=== PATIENT | male | born 2000 | race Caucasian/White ===

== ENCOUNTER 2020-03-12 20:15 | Emergency (ER) | payer OTHER ==
[~2020-03-12] VITALS: Ht 165.1 cm; Wt 175.0 kg
[2020-03-12] MEDS ORDERED: INSLAN SQ (20:24)
[2020-03-12] MEDS ORDERED: INSNOV SQ (20:24)
[2020-03-12] MEDS ORDERED: ALBUTEROL SULFATE HFA 90 MCG/PUFF 8 GM INHALER IH ONE (22:30)
[2020-03-13 00:30] VITALS: BP 126/73
== END 2020-03-13 00:30 | disposition home or self-care (01) ==
LOC: EMS 20:15
DX: J45.990 Exercise induced bronchospasm (principal); E10.8 Type 1 diabetes mellitus with unspecified complications; Z79.4 Long term (current) use of insulin
CPT/HCPCS: 93005; 94640; J3535; 71045-TC